=== PATIENT | male | born 1970 | race Caucasian/White ===

== ENCOUNTER 2020-06-03 14:31 | Emergency (ER) | payer SELFPAY ==
[2020-06-03 14:38] VITALS: BP 168/99; PULSE 90; RESP 17; TEMP 36.9; O2SAT 98; BMI 33.2
--- NOTE | 2020-06-03 14:45 | CT_ITS ---
PROCEDURE: CT ABDOMEN PELVIS W CON CLINICAL INDICATION: left flank/ genital pain. hx of L partial nephrect COMPARISON: No exams were available for comparison TECHNIQUE: IV Contrast: 75ML OPTIRAY 350 Oral Contrast None Axial images obtained with sagittal and coronal reformats. All CT scans at the facility use one or more dose reduction, viz: automated exposure control, ma/kV adjustment per patient size (including targeted exams where dose is matched to indication, i.e. head), or iterative reconstruction technique. FINDINGS: LOWER THORAX: No acute finding ABDOMEN & PELVIS: The liver, spleen, adrenal glands, pancreas, and right kidney have an unremarkable appearance. There are gallstones present. There is postsurgical changes of the left kidney with a defect in the left renal cortex superiorly and medially. Unremarkable appendix. The prostate is slightly prominent 4.7 cm. Scattered colonic diverticula are present. No evidence of diverticulitis. There are degenerative changes in the lower thoracic spine. A sclerotic focus is present in the left acetabular region anteriorly and may be due to a bone island. There is a small calcific or metallic density in the left inguinal ligament region IMPRESSION: 1. No acute abdominal or pelvic findings. 2. Cholelithiasis. 3. Postsurgical changes of the left kidney Dictated by: Michael Castro MD 06/03/2020 16:46 Michael Castro MD in [place] 06/03/2020 16:46
--- NOTE | 2020-06-03 14:46 | HMH.EDGENADL ---
ED Disposition Clinical Impression: Diverticulosis Groin pain Qualifiers: Laterality: unspecified laterality Qualified Code(s): R10.30 - Lower abdominal pain, unspecified Constipation Qualifiers: Constipation type: other constipation type Qualified Code(s): K59.09 - Other constipation Disposition: Home, Self-Care Condition on Discharge: Good Instructions: DI for Acute Abdomen, DI for Diverticulosis Additional Instructions: You have been evaluated for groin pain. Diagnosed with diverticulosis. Please take MiraLAX daily for bowel movements 1-2 times daily. Follow-up with your primary care doctor for symptom recheck and to discuss hypertension, colonoscopy. Return to the emergency department if you have any new or worsening pain or other concerns. Referrals: Provider,Referral, [Referring] - Time of Disposition: 17:05 - Critical Care Critical Care Time: No Attestation: On , the high probability of a clinically significant, sudden or life threatening deterioration of the following system(s) required my full and direct attention, intervention and personal management. The time I documented below is in addition to time spent performing reported procedures but includes the following listed in this critical care notation. Medical Decision Making - Medical Records Medical records reviewed: Yes: I reviewed the patient's medical records. - Donald Inquiry Pt receiving controlled substance: No Vital Signs: 06/03/20 14:38 Temperature 98.4 F Temperature Source Oral Pulse Rate [Right Radial] 90 Respiratory Rate 17 Blood Pressure [Right Arm] 168/99 H Blood Pressure Mean [Right Arm] 122 02 Sat by Pulse Oximetry 98 - Lab Data Lab Results 06/03/20 14:45: Urine Color Yellow, Urine Appearance Clear, Urine pH 5.5, Ur Specific [place] 1.025, Urine Protein Negative, Urine Glucose (UA) Negative, Urine Ketones Negative, Urine Blood Negative, Urine Nitrate Negative, Urine Bilirubin Negative, Urine Urobilinogen 0.2, Ur Leukocyte Esterase Negative, Urine WBC Occasional, Ur Squamous Epith Cells Occasional, Urine Mucus 1+ 06/03/20 15:00: WBC 9.2, RBC 4.90, Hgb 15.2, Hct 44.4, MCV 90.7, MCH 30.9, MCHC 34.1, RDW 12.7, Plt Count 187, MPV 8.8, Neut % (Auto) 74.6, Lymph % (Auto) 18.2, Sunflower % (Auto) 5.7, Eos % (Auto) 1.3, Baso % (Auto) 0.2, Neut # (Auto) 6.9, Lymph # (Auto) 1.7, Sunflower # (Auto) 0.5, Eos # (Auto) 0.1, Baso # (Auto) 0.0 06/03/20 15:00: Sodium 141, Potassium 3.7, Chloride 101, Carbon Dioxide 30, Anion Gap 13.7, BUN 10, Creatinine 0.80, Estimated Creat Clear 177, Estimated GFR 103, Est GFR ( Amer) 125, Glucose 112 H, Calcium 9.8, PSA Screen 0.8 Result diagrams: 06/03/20 15:00 06/03/20 15:00 Orders (Tests/Meds): ED MEDICATIONS Discontinued Medications Generic Name Dose Route Start Last Admin Trade Name Juan Jose PRN Reason Stop Dose Admin Ioversol 75 ml 06/03/20 15:56 06/03/20 15:57 Rad-Optiray 350 100ml Vial IV 06/03/20 15:57 75 ml ONCE ONE Administration Protocol Sodium Chloride 10 ml 06/03/20 15:56 06/03/20 15:57 Rad-Saline Flush 10ml Syringe IV 06/03/20 15:57 10 ml ONCE ONE Administration - CT Data CT Scan: Abdomen Time Received: 17:[address] Reviewed: Yes: I have reviewed the patient's CT results, I have viewed the radiologist's interpretation Findings Narrative: ABDOMEN & PELVIS: The liver, spleen, adrenal glands, pancreas, and right kidney have an unremarkable appearance. There are gallstones present. There is postsurgical changes of the left kidney with a defect in the left renal cortex superiorly and medially. Unremarkable appendix. The prostate is slightly prominent 4.7 cm. Scattered colonic diverticula are present. No evidence of diverticulitis. There are degenerative changes in the lower thoracic spine. A sclerotic focus is present in the left acetabular region anteriorly and may be due to a bone island. There is a small calcific or metall
[2020-06-03 15:02] LABS: Microscopic, Urine URINE MICROSCOPIC (MICROSCOPIC)
[2020-06-03 15:03] LABS: Appearance,Urine CLEAR (Clear); Bilirubin,Urine Negative (Negative); Blood, Urine Negative (Negative); Color,Urine YELLOW (Yellow); Glucose,Urine (UA) Negative (Negative); Ketones,Urine Negative (Negative); Leukocyte Esterase,Urine Negative (Negative); Nitrate,Urine Negative (Negative); PH,Urine 5.5 (5.0-8.5); Protein,Urine Negative (Negative); Specific Gravity, Urine 1.025 (1.005-1.030); Urobilinogen,Urine 0.2 EU/dl (0.2)
[2020-06-03 15:10] LABS: Basophils % 0.2 % (0.1-2.0); Eosinophils # 0.1 K/mm3 (0.0-0.4); Eosinophils % 1.3 % (0.1-12.0); Hematocrit 44.4 % (42.0-52.0); Hemoglobin 15.2 g/dL (14.1-18.0); Lymphocytes # 1.7 K/mm3 (0.7-4.5); Lymphocytes % 18.2 % (10-50); Mean Corpuscular HGB Conc 34.1 g/dL (31.8-35.4); Mean Corpuscular Hemoglobin 30.9 pg (27.0-31.2); Mean Corpuscular Volume 90.7 fl (80-94); Mean Platelet Volume 8.8 fl (7.4-10.4); Monocytes # 0.5 K/mm3 (0.1-1.0); Monocytes % 5.7 % (1.7-9.3); Neutrophils # 6.9 K/mm3 (1.8-7.8); Neutrophils % 74.6 % (37.0-80.0); Platelet Count 187 K/mm3 (142-424); Red Cell Distribution Width 12.7 % (11.5-17.5); White Blood Count 9.2 K/mm3 (4.8-10.8)
[2020-06-03 15:14] LABS: Mucus,Urine 1+ /lpf; Squamous Epithelial Cell,Urine Occasional #/hpf (0-5); WBC,Urine Occasional #/hpf (0-3)
[2020-06-03 15:16] LABS: Chloride 101 mmol/L (98-107); Potassium 3.7 mmoL/L (3.5-5.1); Sodium 141 mmol/L (136-145)
[2020-06-03 15:19] LABS: Anion Gap 13.7 mEq/L (5-15); Blood Urea Nitrogen 10 mg/dl (9-20); Carbon Dioxide 30 mmol/L (22.0-30.0); Creatinine Clearance Estimated 177 mL/min (50-200); Estimated Glomerular Filt Rate 103 ml/min (>60); GFR (African American) 125 ML/MIN (>60)
[2020-06-03 15:20] LABS: Calcium 9.8 mg/dl (8.4-10.2); Glucose 112 mg/dl (74-100)
[2020-06-03 16:26] LABS: Prostate Specific Ag Screen 0.8 ng/ml (0.0-4.0)
[2020-06-03 17:19] VITALS: BP 145/78; PULSE 85; RESP 15; TEMP 36.6; O2SAT 98
== END 2020-06-03 17:19 | disposition home or self-care (01) ==
PROVIDERS: Emergency Provider Emergency Medicine
DX: K59.09 Other constipation (principal); R10.32 Left lower quadrant pain; K57.90 Diverticulosis of intestine, part unspecified, without perforation or abscess without bleeding
CPT/HCPCS: 74177; 80048; 81001; 85025; 99283; G0103; Q9967

== ENCOUNTER 2022-02-24 13:30 | Emergency (ER) | payer SELFPAY ==
--- NOTE | 2022-02-24 13:36 | XR_ITS ---
FINAL REPORT CLINICAL HISTORY: pain, popping sound when bending over onto something FINDINGS: 3 views of the left ribs were obtained. There are no rib fractures. There is no pleural fluid collection or pneumothorax. A single view of the chest demonstrates no acute cardiopulmonary process. IMPRESSION: Unremarkable left rib series. Reviewed, Interpreted and Dictated by Raghu Dorsey III, MD Transcribed by Henry Nobles Authenticated and [facility]
[2022-02-24 13:55] VITALS: BP 160/95; PULSE 87; RESP 19; TEMP 36.8; O2SAT 97; BMI 35.2
--- NOTE | 2022-02-24 14:13 | HMH.EDUTC ---
[facility] [place] Impression: Contusion of rib on left side Qualifiers: Encounter type: initial encounter Qualified Code(s): S20.212A - Contusion of left front wall of thorax, initial encounter Disposition: Home, Self-Care Condition on Discharge: Good Instructions: DI for Rib Contusion, How To Perform RICE (Rest, Ice, Compress, Elevate) Additional Instructions: Ice to area every couple of hours may help with pain Over the counter lidocaine patches may help with pain and discomfort Over the counter Motrin and/or Tylenol may help with pain and discomfort Return if needed Straight to ER if any life threatening symptoms Prescriptions: Ibuprofen [Ibuprofen 800mg Tablet] 800 mg PO TIDP PRN #20 tab PRN Reason: Moderate Pain Transmission Status: Pending to [id number] Referrals: Provider,Referral, MD [Primary Care Provider] - As needed Time of Disposition: 15:03 Medical Decision Making - Donald Inquiry Pt receiving controlled substance: No Donald was queried for this patient: No Vital Signs: 02/24/22 13:55 Temperature 98.2 F Temperature Source Oral Pulse Rate [Left Radial] 87 Respiratory Rate 19 Blood Pressure [Right Arm] 160/95 H Blood Pressure Mean [Right Arm] 116 02 Sat by Pulse Oximetry 97 Orders (Tests/Meds): ED MEDICATIONS Discontinued Medications Generic Name Dose Route Start Last Admin Trade Name Freq PRN Reason Stop Dose Admin Ibuprofen 800 mg 02/24/22 14:56 02/24/22 14:58 Ibuprofen 400 Mg Tablet PO 02/24/22 14:57 800 mg ONCE ONE Administration - Radiology Data #1 Image(s): Chest (with left ribs) Image Reviewed: Yes I have reviewed radiologist's interpretation FINDINGS: 3 views of the left ribs were obtained. There are no rib fractures. There is no pleural fluid collection or pneumothorax. A single view of the chest demonstrates no acute cardiopulmonary process. IMPRESSION: Unremarkable left rib series. [facility] [place] - General Stated complaint: AO 02/24 rib pain Time Seen by Provider: 02/24/22 14:14 Description of Symptoms (Recalled from Triage Doc. by RN): patient comess in today for rib pain. patient was bent over a container and head a popping sound. happened today while shopping HEENT Symptoms (Recalled from RN notes): No Resp Symptoms (Recalled from RN notes): No Skin Symptoms (Recalled from RN notes): No MS Symptoms (Recalled from RN notes): Yes Functional Status (Recalled from RN notes): wnl - History of Present Illness Provider Complaint: Patient states that he was leaning over a crate when he felt something pop in his left lower ribs States that it happened about 2-3 hours ago and feels sore Denies shortness of breath denies pain with movement States that he was just worried he may have broken a rib so he came in - Related Data Previous Rx's Medication Instructions Recorded Ibuprofen [Ibuprofen 800mg 800 mg PO TIDP PRN #20 tab 02/24/22 Tablet] Allergies Allergy/AdvReac Type Severity Reaction Status Date / Time No Known Allergies Allergy Verified 06/03/20 14:41 - Worker's Comp Is this a Worker's Comp case?: No [facility] History - Hepatitis A Screen Attestation statement:: This patient has been screened for Hepatitis A risk factors. I have reviewed the patient's past medical history: Yes Medical History: Denies:: Diabetes Mellitus Type 1, Diabetes Mellitus Type 2 - Social History Smoking Status: Former smoker Alcohol Intake: never Occupational Status: employed ROS Obtained: Yes All systems reviewed & no additional complaints, Yes Systems reviewed as appropriate & no additional complaints - Constitutional Constitutional: Reports system reviewed and no additional complaints, except as docu, Denies body ache, Denies chills, Denies fever(s) - ENT Ears, Nose, Mouth, and Throat: Reports system reviewed and no additional complaints, except as docu - Cardiovascular Cardiovascular: Reports system
[2022-02-24 15:05] VITALS: BP 160/95; PULSE 87; RESP 19; TEMP 36.8
== END 2022-02-24 15:12 | disposition home or self-care (01) ==
PROVIDERS: Emergency Provider Nurse Practitioner
DX: S20.219A Contusion of unspecified front wall of thorax, initial encounter
CPT/HCPCS: 71101; 99212; G0463

== ENCOUNTER 2022-02-26 15:54 | Emergency (ER) | payer SELFPAY ==
[2022-02-26 16:10] VITALS: BP 149/88; PULSE 81; RESP 19; TEMP 36.8; O2SAT 99; BMI 35.2
[2022-02-26 16:19] LABS: Apearance,Urine Clear (Clear); Bilirubin,Urine Negative (Negative); Blood, Urine Negative (Negative); Color,Urine Yellow (Yellow); Glucose,Urine (UA) Negative (Negative); Ketones,Urine Negative (Negative); PH,Urine 5.5 (5.0-8.5); Protein,Urine Negative (Negative); UTC Leukocyte Esterase,Urine Negative (Negative); UTC Nitrate,Urine Negative (Negative); Urobilinogen,Urine 0.2 EU/dl (0.2)
--- NOTE | 2022-02-26 16:42 | HMH.EDUTC ---
[facility] [place] Disposition Clinical Impression: Acute flank pain UTI (urinary tract infection) Qualifiers: Urinary tract infection type: acute cystitis Hematuria presence: without hematuria Qualified Code(s): N30.00 - Acute cystitis without hematuria Disposition: Home, Self-Care Condition on Discharge: Good Instructions: DI for Flank Pain, DI for Urinary Tract Infection (UTI) Additional Instructions: Increase fluids, water and not soda or tea. Can drink cranberry juice or cranberry extract. White front to back Wear cotton underwear Empty bladder after intercourse Start antibiotics immediately and make sure you take the full course although you may start to see improvement over the next 48 hours. You can eat yogurt or take probiotics to decrease diarrhea or yeast infection caused by the antibiotic Be sure to follow-up anytime for new or worsening symptoms in 48 hours for wound urine culture results be sure to let you PCP no recent urine for culture so they can request records and ensure that you have appropriate antibiotic if you are not getting better or getting worse. If symptoms worsen or do not improve return or be seen in the ER. Follow-up with primary care this week. Prescriptions: cephALEXin [Cephalexin 500mg Tab] 500 mg PO BID 7 Days #14 tab Transmission Status: Pending to [id number] Referrals: Provider,Referral, [Primary Care Provider] - Time of Disposition: 16:50 Medical Decision Making - Donald Inquiry Pt receiving controlled substance: No Vital Signs: 02/26/22 16:10 Temperature 98.3 F Temperature Source Oral Pulse Rate [Left Brachial] 81 Respiratory Rate 19 Blood Pressure [Right Arm] 149/88 H Blood Pressure Mean [Right Arm] 108 Blood Pressure Source [Right Arm] Automatic Cuff Blood Pressure Position [Right Arm] Sitting 02 Sat by Pulse Oximetry 99 Oxygen Delivery Method Room Air - Lab Data Lab Results 02/26/22 16:12: Urine Color Yellow, Urine Appearance Clear, Urine pH 5.5, Ur Specific [place] 1.030, Urine Protein Negative, Urine Glucose (UA) Negative, Urine Ketones Negative, Urine Blood Negative, Urine Nitrate Negative, Urine Bilirubin Negative, Urine Urobilinogen 0.2, Ur Leukocyte Esterase Negative Medical Decision Narrative: pt refuses to be checked out in ed, risk discussed with pt he still declined [facility] [place] HPI - General Chief complaint: Urgent Treatment Center Stated complaint: Back pain Time Seen by Provider: 02/26/22 16:44 Mode of Arrival: Ambulatory Source of Information: Patient Limitations: No Limitations Description of Symptoms (Recalled from Triage Doc. by RN): PATIENT C/O LEFT FLANK PAIN HEENT Symptoms (Recalled from RN notes): No Resp Symptoms (Recalled from RN notes): No Skin Symptoms (Recalled from RN notes): No MS Symptoms (Recalled from RN notes): No Functional Status (Recalled from RN notes): WNL - History of Present Illness Provider Complaint: 51 yr old male presents for left flank pain and foul smelling urine - Related Data Previous Rx's Medication Instructions Recorded Ibuprofen [Ibuprofen 800mg 800 mg PO TIDP PRN #20 tab 02/24/22 Tablet] cephALEXin [Cephalexin 500mg Tab] 500 mg PO BID 7 Days #14 tab 02/26/22 Allergies Allergy/AdvReac Type Severity Reaction Status Date / Time No Known Allergies Allergy Verified 06/03/20 14:41 - Worker's Comp Is this a Worker's Comp case?: No [facility] History - Hepatitis A Screen Attestation statement:: This patient has been screened for Hepatitis A risk factors. I have reviewed the patient's past medical history: Yes Medical History: Denies:: Diabetes Mellitus Type 1, Diabetes Mellitus Type 2 - Social History Smoking Status: Former smoker Alcohol Intake: never Occupational Status: employed ROS Obtained: Yes Systems reviewed as appropriate & no additional complaints - Constitutional Constitutional: Reports system reviewed and no additional complaints, except as Cipriano long
[2022-02-26 16:51] VITALS: BP 149/88; PULSE 81; RESP 19; TEMP 36.8; O2SAT 99
== END 2022-02-26 16:53 | disposition home or self-care (01) ==
PROVIDERS: Emergency Provider Nurse Practitioner Family
DX: N30.00 Acute cystitis without hematuria (principal); M54.9 Dorsalgia, unspecified; Z79.1 Long term (current) use of non-steroidal anti-inflammatories (NSAID); Z87.891 Personal history of nicotine dependence
CPT/HCPCS: 81003; 99213; G0463